=== PATIENT | female | born 1945 | race Caucasian/White ===

== ENCOUNTER 2021-09-07 00:08 | Inpatient (IN) | payer MEDICARE ==
[~2021-09-07] VITALS: Ht 168 cm; Wt 67.0 kg
[2021-09-07 00:58] LABS: BASOPHIL 0.5 % (0-2); EOSINOPHIL 0.7 % (0-7); HCT 30.3 % (37.0-47.0); HGB 10.1 g/dl (12.5-16.0); LYMPHOCYTE 17.2 % (15-48); MCH 31.2 pg (25.0-31.0); MCHC 33.3 g/dL (32.0-36.0); MCV 93.5 fL (78.0-100.0); MONOCYTE 5.7 % (0-12); MPV 8.9 fL (6.0-9.5); NEUTROPHIL 75.5 % (41-80); NRBC 0; PLT 341 K/uL (150-400); RBC 3.24 M/uL (4.20-5.40); RDW 12.5 % (11.5-14.0); WBC 13.7 K/uL (4.0-10.5)
[2021-09-07 01:12] LABS: ALBUMIN 3.1 g/dL (3.4-5.0); BILIRUBIN - TOTAL 0.4 mg/dL (0.2-1.0); BUN/CREAT RATIO (CALC) 31.2 RATIO; CREATININE 0.8 mg/dL (0.51-0.95); GLOBULIN (CALCULATION) 3.6 g/dL; POTASSIUM 3.2 mmol/L (3.5-5.1); TOTAL PROTEIN 6.7 g/dL (6.4-8.2)
[2021-09-07 01:30] LABS: CORONAVIRUS 2019 SARS-COV-2 NEGATIVE (NEGATIVE); INFLUENZA A NAA NEGATIVE (NEGATIVE)
[2021-09-07 02:29] LABS: INR 1.11 (0.9-1.2); PTT 29.2 SECONDS (24.9-34.6)
[2021-09-07 06:29] LABS: HCT 25.4 % (37.0-47.0); HGB 8.3 g/dl (12.5-16.0); MCH 31.3 pg (25.0-31.0); MCHC 32.7 g/dL (32.0-36.0); MCV 95.8 fL (78.0-100.0); MPV 9.3 fL (6.0-9.5); RBC 2.65 M/uL (4.20-5.40); RDW 12.6 % (11.5-14.0); RETICULOCYTE COUNT 2.1 % (1.0-2.0); WBC 10.1 K/uL (4.0-10.5)
[2021-09-07 06:35] LABS: INR 1.15 (0.9-1.2); PROTHROMBIN TIME 14.4 SECONDS (11.9-13.9)
[2021-09-07 06:47] LABS: IRON % SATURATION 20.8 %SAT (20-50)
[2021-09-07 07:17] LABS: BUN/CREAT RATIO (CALC) 35.9 RATIO; CREATININE 0.64 mg/dL (0.51-0.95); FT4 (FREE T4) 1.1 ng/dL (0.76-1.46); MAGNESIUM 2.1 mg/dL (1.8-2.4); POTASSIUM 3.8 mmol/L (3.5-5.1)
[2021-09-07 15:36] LABS: HCT 22.9 % (37.0-47.0); HGB 7.6 g/dL (12.5-16.0)
--- NOTE | 2021-09-07 22:11 | NUR ---
PATIENT HAS RECIVED ONE UNIT OF BLOOD. PATIENT HAS TOLERATED PROCEDURE WELL WITH NO REACTION. 50ML FLUSH USED AFTER BLOOD WAS COMPLETE.
[2021-09-08 06:39] LABS: BASOPHIL 0.8 % (0-2); EOSINOPHIL 0.5 % (0-7); HCT 25.8 % (37.0-47.0); HGB 8.6 g/dl (12.5-16.0); LYMPHOCYTE 19.5 % (15-48); MCH 31.5 pg (25.0-31.0); MCHC 33.3 g/dL (32.0-36.0); MCV 94.5 fL (78.0-100.0); MONOCYTE 5.2 % (0-12); MPV 8.8 fL (6.0-9.5); NEUTROPHIL 73.5 % (41-80); NRBC 0; PLT 237 K/uL (150-400); RBC 2.73 M/uL (4.20-5.40); RDW 13.2 % (11.5-14.0); WBC 7.3 K/uL (4.0-10.5)
[2021-09-08 06:54] LABS: BUN/CREAT RATIO (CALC) 23.4 RATIO; CREATININE 0.77 mg/dL (0.51-0.95); MAGNESIUM 2.2 mg/dL (1.8-2.4); POTASSIUM 3.7 mmol/L (3.5-5.1)
[2021-09-09 06:23] LABS: BASOPHIL 0.9 % (0-2); EOSINOPHIL 1.1 % (0-7); HCT 26.6 % (37.0-47.0); HGB 8.8 g/dl (12.5-16.0); MCH 31.4 pg (25.0-31.0); MCHC 33.1 g/dL (32.0-36.0); MONOCYTE 7.9 % (0-12); MPV 8.8 fL (6.0-9.5); NEUTROPHIL 65.5 % (41-80); NRBC 0; PLT 245 K/uL (150-400); RDW 13.2 % (11.5-14.0); WBC 6.6 K/uL (4.0-10.5)
[2021-09-09 06:48] LABS: BUN/CREAT RATIO (CALC) 13.9 RATIO; CREATININE 0.79 mg/dL (0.51-0.95); POTASSIUM 3.3 mmol/L (3.5-5.1)
[2021-09-09] MEDS ORDERED: MIRALAX17 GM PO (09:56)
== END 2021-09-09 13:25 | disposition home or self-care (01) | DRG 378 ==
LOC: FER 00:08 → FMS 04:19
PROVIDERS: Emergency Medicine; Internal Medicine; Nurse Practitioner Acute Care; Student in an Organized Health Care Education/Training Program; ADMIT Internal Medicine
PROC: B24BZZZ Ultrasonography of Heart with Aorta (ICD-10-PCS; 2021-09-07)
PROC: 30233N1 Transfusion of Nonautologous Red Blood Cells into Peripheral Vein, Percutaneous Approach (ICD-10-PCS; 2021-09-07)
PROC: 0DB98ZX Excision of Duodenum, Via Natural or Artificial Opening Endoscopic, Diagnostic (ICD-10-PCS; principal; 2021-09-08 13:45)
PROC: 0DB78ZX Excision of Stomach, Pylorus, Via Natural or Artificial Opening Endoscopic, Diagnostic (ICD-10-PCS; 2021-09-08 13:45)
PROC: 0DJD8ZZ Inspection of Lower Intestinal Tract, Via Natural or Artificial Opening Endoscopic (ICD-10-PCS; 2021-09-08 13:45)
DX: K57.33 Diverticulitis of large intestine without perforation or abscess with bleeding (principal); D62 Acute posthemorrhagic anemia; K59.00 Constipation, unspecified; I95.9 Hypotension, unspecified; Z20.822 Contact with and (suspected) exposure to COVID-19; E87.6 Hypokalemia; M47.816 Spondylosis without myelopathy or radiculopathy, lumbar region; R73.9 Hyperglycemia, unspecified; M41.9 Scoliosis, unspecified; M43.16 Spondylolisthesis, lumbar region; M81.0 Age-related osteoporosis without current pathological fracture; K44.9 Diaphragmatic hernia without obstruction or gangrene; Z83.6 Family history of other diseases of the respiratory system; Z83.3 Family history of diabetes mellitus
CPT/HCPCS: 36415; 36430; 71045; 80048; 80053; 82728; 83036; 83540; 83550; 83735; 84439; 84443; 84484; 85014; 85018; 85025; 85610; 85730; 86850; 86900; 86901; 86922; 93005; C9113; G0378; J1610; J2250; J2405; J2543; J2704; J2916; J7030; J7120; P9016; Q9967; U0002

== ENCOUNTER 2021-09-11 20:52 | Day surgery (SDCO) | payer MEDICARE ==
[~2021-09-11] VITALS: Ht 170.2 cm; Wt 65.8 kg
[~2021-09-11 20:52] MED LIST: MIRALAX17 GM PO
[2021-09-11 21:21] LABS: BASOPHIL 0.6 % (0-2); EOSINOPHIL 1.5 % (0-7); HCT 24.7 % (37.0-47.0); HGB 8.2 g/dl (12.5-16.0); LYMPHOCYTE 25.3 % (15-48); MCH 31.9 pg (25.0-31.0); MCHC 33.2 g/dL (32.0-36.0); MCV 96.1 fL (78.0-100.0); MONOCYTE 6.3 % (0-12); MPV 8.4 fL (6.0-9.5); NEUTROPHIL 65.6 % (41-80); NRBC 0; PLT 282 K/uL (150-400); RBC 2.57 M/uL (4.20-5.40); WBC 6.7 K/uL (4.0-10.5)
[2021-09-11 21:32] LABS: INR 1.12 (0.9-1.2); PROTHROMBIN TIME 14.1 SECONDS (11.9-13.9)
[2021-09-11 21:39] LABS: ALBUMIN 3.1 g/dL (3.4-5.0); BILIRUBIN - TOTAL 0.3 mg/dL (0.2-1.0); BUN/CREAT RATIO (CALC) 26.2 RATIO; CREATININE 0.65 mg/dL (0.51-0.95); GLOBULIN (CALCULATION) 3.4 g/dL; POTASSIUM 3.2 mmol/L (3.5-5.1); TOTAL PROTEIN 6.5 g/dL (6.4-8.2)
[2021-09-11 23:20] LABS: CORONAVIRUS 2019 SARS-COV-2 NEGATIVE (NEGATIVE); INFLUENZA A NAA NEGATIVE (NEGATIVE)
[2021-09-12 06:27] LABS: BASOPHIL 0.7 % (0-2); EOSINOPHIL 2.6 % (0-7); HCT 23.7 % (37.0-47.0); HGB 7.8 g/dl (12.5-16.0); MCHC 32.9 g/dL (32.0-36.0); MCV 97.1 fL (78.0-100.0); MONOCYTE 7.6 % (0-12); MPV 8.6 fL (6.0-9.5); NEUTROPHIL 58.2 % (41-80); NRBC 0; PLT 265 K/uL (150-400); RBC 2.44 M/uL (4.20-5.40); RDW 13.9 % (11.5-14.0); WBC 5.4 K/uL (4.0-10.5)
[2021-09-12 06:57] LABS: BUN/CREAT RATIO (CALC) 25.4 RATIO; CREATININE 0.59 mg/dL (0.51-0.95); POTASSIUM 3.8 mmol/L (3.5-5.1)
[2021-09-12 07:10] LABS: IRON % SATURATION 20.8 %SAT (20-50)
--- NOTE | 2021-09-12 10:34 | NUR ---
INDEPENDENT DAUGHTER AND GRANDSON LIVES WITH, PT DENIES ANY DISCHARGE NEEDS
[2021-09-13 06:39] LABS: BASOPHIL 0.9 % (0-2); EOSINOPHIL 1.8 % (0-7); HCT 25.9 % (37.0-47.0); HGB 8.2 g/dl (12.5-16.0); LYMPHOCYTE 24.1 % (15-48); MCH 30.9 pg (25.0-31.0); MCHC 31.7 g/dL (32.0-36.0); MCV 97.7 fL (78.0-100.0); MONOCYTE 8.3 % (0-12); MPV 8.6 fL (6.0-9.5); NEUTROPHIL 64.3 % (41-80); NRBC 0; PLT 275 K/uL (150-400); RBC 2.65 M/uL (4.20-5.40); RDW 14.4 % (11.5-14.0); WBC 6.7 K/uL (4.0-10.5)
== END 2021-09-13 13:20 | disposition home or self-care (01) ==
LOC: FER 20:52 → FMS 22:14
PROVIDERS: Allergy & Immunology Allergy; Emergency Medicine; Nurse Practitioner Acute Care; ADMIT Internal Medicine
DX: K57.91 Diverticulosis of intestine, part unspecified, without perforation or abscess with bleeding (principal); D50.0 Iron deficiency anemia secondary to blood loss (chronic); E87.6 Hypokalemia; Z20.822 Contact with and (suspected) exposure to COVID-19; Z80.0 Family history of malignant neoplasm of digestive organs; Z91.018 Allergy to other foods; Z88.8 Allergy status to other drugs, medicaments and biological substances
CPT/HCPCS: 36415; 80048; 80053; 83540; 83550; 85025; 85610; 85730; 99284; G0378; U0002